=== PATIENT | female | born 1985 | race Caucasian/White ===

== ENCOUNTER 2019-07-20 05:30 | Day surgery (SDC) | payer BC ==
[2019-07-16 16:28] LABS: CLARITY,URINE SLIGHTLY CLOUDY (Clear); COLOR,URINE YELLOW (Yellow); GLUCOSE, URINE NEGATIVE (Neg); KETONES,URINE TRACE mg/dl (Neg); LEUKOCYTE ESTERASE ,URINE NEGATIVE (Neg); NITRITES, URINE NEGATIVE (Neg); OCCULT BLOOD,URINE MODERATE (Neg); PROTEIN,URINE NEGATIVE (Neg)
[2019-07-16 16:29] LABS: BASOPHILS % (AUTO) 0.4 % (0-1); EOSINOPHILS # (AUTO) 0.1 X10'3 (0-0.9); LYMPHOCYTES # (AUTO) 2.3 X10'3 (1.1-4.8); LYMPHOCYTES % (AUTO) 26.1 % (21-51); MEAN CORPUSCULAR HEMOGLOBIN 31.5 PG (27.0-31.0); MEAN CORPUSCULAR HGB CONC 34.7 g/dL (33.0-36.5); MEAN CORPUSCULAR VOLUME 90.9 FL (78-98); MONOCYTES # (AUTO) 0.6 X10'3 (0-0.9); MONOCYTES % (AUTO) 6.8 % (2-12); NEUTROPHILS # (AUTO) 5.8 X10'3 (1.8-7.7); NEUTROPHILS % (AUTO) 65.7 % (42-75); PRE OP HEMATOCRIT 41.1 % (35.0-45.0); PRE OP HEMOGLOBIN 14.2 g/dL (12.0-16.0); PRE OP PLATELET COUNT 294 X10'3 (140-440); RED BLOOD COUNT 4.52 X10'6 (4.20-5.60); RED CELL DISTRIBUTION WIDTH 12.9 % (11.5-14.5)
[2019-07-16 16:31] LABS: UA COLLECTION TYPE CLN CATCH MIDSTREAM
[2019-07-16 16:39] LABS: MUCUS STRANDS MANY /LPF (Neg); SQUAMOUS EPITHELIAL CELL,UR MODERATE /LPF (FEW); TRANSITIONAL EPI CELLS,URINE FEW /HPF
[2019-07-16 16:40] LABS: HCG SERUM QL NEGATIVE
[2019-07-16 16:41] LABS: PRE OP PROTIME 10.3 SECONDS (9.0-12.0)
[2019-07-16 16:41] LABS: BACTERIA,URINE FEW /HPF (Neg); RBC,URINE 0-2 /HPF (0-2); WBC,URINE 0-4 /HPF (0-4)
[2019-07-16 16:46] LABS: ALBUMIN/GLOBULIN RATIO 1.1 (1.1-1.5); ALKALINE PHOSPHATASE 54 IU/L (46-116); BLOOD UREA NITROGEN 12 MG/DL (7-18); CALCIUM 8.7 MG/DL (8.5-10.1); CHLORIDE 105 MMOL/L (99-107); PRE OP ALT 23 U/L (30-65); PRE OP ANION GAP 8 (8-16); PRE OP AST 15 U/L (10-37); PRE OP BILIRUB, TOTAL 0.4 MG/DL (0.0-1.0); PRE OP GLUCOSE 89 MG/DL (70-104); PRE OP POTASSIUM 3.7 MMOL/L (3.4-5.1); PRE OP SODIUM 140 MMOL/L (135-145); TOTAL CARBON DIOXIDE 26.6 MMOL/L (24-32); TOTAL PROTEIN 7.5 G/DL (6.4-8.2); eGFR 84 ML/MIN
[2019-07-20] VITALS (10 sets, daily range): BP systolic 104–122; BP diastolic 63–77
[~2019-07-20] VITALS: Ht 172.7 cm; Wt 69.0 kg
[~2019-07-20 05:30] MED LIST: NO HOME MEDS; ceFOXitin 2 GM ADDvantage bag 100 ML IV ONE; famotidine 10mg tablet PO ONE; ringers solution, lacted 1,000 ML IV SCH
[2019-07-20] MEDS ORDERED: ferric subsulfate solution/paste 1 APPLIC SOL.W.APPL TP ONE (06:50)
[2019-07-20] MEDS ORDERED: sevoflurane 250ml liquid IH ONE (07:18)
[2019-07-20] MEDS ORDERED: midazolam 2 mg/2 ml injection ONE (07:20)
[2019-07-20] MEDS ORDERED: fentaNYL/PF 50MCG/1 ML 2ML syringe ONE (07:20)
[2019-07-20] MEDS ORDERED: LIDOcaine 2% (20mg/ml) 5ml vial ONE (07:20)
[2019-07-20] MEDS ORDERED: propofol inj 20 ML IV ONE (07:21)
[2019-07-20] MEDS ORDERED: ondansetron/PF 4mg/2ml inj ONE (07:28)
[2019-07-20] MEDS ORDERED: dexamethasone sod phosphate 4mg/ml inj. ONE (07:28)
[2019-07-20] MEDS ORDERED: ringers solution, lacted 1,000 ML IV SCH (07:43)
[2019-07-20] MEDS ORDERED: morphine 4 MG/ML inj SYRINge IV PRN ×2 (07:45)
[2019-07-20] MEDS ORDERED: meperidine/PF 25mg/ml syringe IV PRN ×3 (07:45)
[2019-07-20] MEDS ORDERED: ondansetron/PF 4mg/2ml inj IV PRN (07:45)
[2019-07-20] MEDS ORDERED: proCHLORperazine 10 MG/2 ml inj IV PRN (07:45)
--- NOTE | 2019-07-20 08:18 | NUR ---
Received from OR via [facility] , accompanied by Anesthesiologist HEBERT and report given by Anesthesiolgist. PATIENT WITH 20G PIV IN LEFT UE RUNNING LR AT 100. 10L MASK ON WITH 99% SATURATIONS. WILEY PAD IN PLACE AND IS CDI. Addendum: 07/20/19 at 0831 by Aquilino Myers RN, RN Amended: Links added.
--- NOTE | 2019-07-20 09:38 | NUR ---
ALL DC CRITERIA HAS BEEN MET. IV TAKEN OUT WITHOUT COMPLICATIONS. ALL INSTRUCTIONS COVERED AND ALL QUESTIONS ANSWERED. DRESSINGS CDI. OUT VIA WHEELCHAIR TO PERSONAL VEHICLE WHERE PATIENT WAS SECURED IN AND DRIVEN HOME BY FAMILY. VSS. Addendum: 07/20/19 at 0950 by Aquilino Myers RN, RN Amended: Links added.
== END 2019-07-20 09:38 | disposition home or self-care (01) ==
LOC: PAS 05:30
PROVIDERS: ATTEND Obstetrics & Gynecology
DX: D06.0 Carcinoma in situ of endocervix (principal); N84.0 Polyp of corpus uteri; F15.90 Other stimulant use, unspecified, uncomplicated; Z79.01 Long term (current) use of anticoagulants; Z79.899 Other long term (current) drug therapy
CPT/HCPCS: 36415; 57522; 58558; 80053; 81001; 82948; 84703; 85025; 85610; 85730; 86885; 86900; 86901; J0694; J1100; J2001; J2175; J2250; J2405; J2704; J3010; A4355; A4618; A6258; A7000; J7120